=== PATIENT | female | born 1950 | race Caucasian/White ===

== ENCOUNTER → 2016-09-21 | Outpatient (CLI) | payer OTHER ==
[~2016-09-21] MED LIST: B-12; CENTRUM SILVER1 TA1 PO; LORTAB 5/500 501 TAB PO; OMEGA-3; SYNTHROID0.075 MG/T PO; ULTRAM 50MG TAB50 MG PO
== END ==
LOC: MC.RAD 08:57
DX: Z12.31 Encounter for screening mammogram for malignant neoplasm of breast (principal)

== ENCOUNTER → 2017-03-31 | Outpatient (CLI) | payer OTHER | LOC: COL.RAD 09:45 | DX: M25.512 Pain in left shoulder (principal) | CPT/HCPCS: J3301; Q9967 ==

== ENCOUNTER → 2017-09-22 | Outpatient (CLI) | payer MEDICARE, OTHER | LOC: MC.RAD 07:56 | DX: Z12.31 Encounter for screening mammogram for malignant neoplasm of breast (principal) ==

== ENCOUNTER 2017-09-29 17:32 | Emergency (ER) | payer MEDICARE, OTHER ==
[~2017-09-29] VITALS: Ht 152.4 cm; Wt 63.6 kg
[2017-09-29 17:46] VITALS: TEMP 98.3
[2017-09-29 19:30] LABS: BASO % 0.5 % (0.0-2.0); EOS # 0.1 (0.0-0.7); EOS % 0.6 % (0-4.0); GRAN # 6.4 (1.4-6.5); GRAN % 75.4 % (42.2-75.2); HEMATOCRIT 40.6 % (37.0-47.0); HEMOGLOBIN 13.7 g/dl (12.5-16.0); LYMPH # 1.2 (1.2-3.4); LYMPH % 14.3 % (20.0-51.0); MEAN CELL VOLUME 92 fl (80.0-100.0); MEAN CORPUSCULAR HEMOGLOBIN 31 pg (27.0-31.0); MEAN CORPUSCULAR HGB CONC 34 g/dl (33.0-37.0); MEAN PLATELET VOLUME 8.8 fl (7.4-10.4); MONO # 0.8 (0.1-0.6); PLATELET COUNT 299 K/mm3 (130-400); REDCELL DISTRIBUTION WIDTH-CV 12.3 % (11.5-14.5)
[2017-09-29 19:41] LABS: ALBUMIN 4.8 gm/dL (3.5-5.0); BILIRUBIN,TOTAL 0.3 mg/dL (0.0-1.0); CALCIUM 9.9 mg/dL (8.4-10.2); CREATININE, serum 0.74 mg/dL (0.52-1.25); POTASSIUM 4.1 mmol/L (3.4-5.0); TOTAL PROTEIN 7.5 gm/dL (6.4-8.2)
[2017-09-29] MEDS ORDERED: OMEGA-31 SGL PO (19:45)
[2017-09-29] MEDS ORDERED: ESTRACE0.1 MG/GM VG (19:46)
[2017-09-29] MEDS ORDERED: FLAX OIL1000 MG (19:46)
[2017-09-29] MEDS ORDERED: VITAMIN D32000 I1 PO (19:46)
[2017-09-29] MEDS ORDERED: BENTYL 20MG20 MG/TAB PO (20:58)
[2017-09-29] MEDS ORDERED: ZOFRAN ODT4 MG PO (20:58)
[2017-09-29 21:21] VITALS: BP 121/78; PULSE 91
== END 2017-09-29 21:22 | disposition home or self-care (01) ==
LOC: COL.ER 17:32
PROVIDERS: Emergency Medicine
DX: R10.30 Lower abdominal pain, unspecified (principal); M54.9 Dorsalgia, unspecified; G89.29 Other chronic pain; Z90.710 Acquired absence of both cervix and uterus

== ENCOUNTER → 2018-10-05 | Outpatient (CLI) | payer MEDICARE, OTHER ==
[~2018-10-05] MED LIST changes: +BENTYL 20MG20 MG/TAB PO; +ESTRACE0.1 MG/GM VG; +FLAX OIL1000 MG; +OMEGA-31 SGL PO; +VITAMIN D32000 I1 PO; +ZOFRAN ODT4 MG PO
== END ==
LOC: MC.RAD 07:32
DX: Z12.31 Encounter for screening mammogram for malignant neoplasm of breast (principal)

== ENCOUNTER → 2019-09-03 | Outpatient (CLI) | payer MEDICARE, OTHER | LOC: MC.RAD 13:30 | DX: N64.4 Mastodynia (principal) | CPT/HCPCS: G0279 ==

== ENCOUNTER 2019-11-12 13:04 | Outpatient (RCR) | payer SELFPAY | END 2019-12-11 | disposition still patient (30) | LOC: COL.CR | DX: Z02.89 Encounter for other administrative examinations (principal) ==

== ENCOUNTER → 2020-09-04 | Outpatient (CLI) | payer MEDICARE, OTHER | LOC: MC.RAD 09:00 | DX: Z12.31 Encounter for screening mammogram for malignant neoplasm of breast (principal) ==

== ENCOUNTER 2021-02-19 14:34 | Emergency (ER) | payer MEDICARE, OTHER ==
[~2021-02-19] VITALS: Ht 152.4 cm; Wt 68.2 kg
[2021-02-19 14:51] VITALS: TEMP 97.8
[2021-02-19 15:21] LABS: BASO % 0.5 % (0.0-2.0); EOS # 0.1 (0.0-0.7); GRAN # 3.7 (1.4-6.5); GRAN % 60.2 % (42.2-75.2); HEMATOCRIT 40.4 % (37.0-47.0); HEMOGLOBIN 13.4 g/dl (12.5-16.0); LYMPH # 1.6 (1.2-3.4); LYMPH % 26.7 % (20.0-51.0); MEAN CELL VOLUME 93 fl (80.0-100.0); MEAN CORPUSCULAR HEMOGLOBIN 31 pg (27.0-31.0); MEAN CORPUSCULAR HGB CONC 33 g/dl (33.0-37.0); MEAN PLATELET VOLUME 8.9 fl (7.4-10.4); MONO # 0.6 (0.1-0.6); MONO % 10.3 % (1.7-9.3); PLATELET COUNT 308 K/mm3 (130-400); RED BLOOD COUNT 4.34 M/mm3 (4.10-5.30); REDCELL DISTRIBUTION WIDTH-CV 12.4 % (11.5-14.5)
[2021-02-19 15:31] LABS: ALANINE AMINOTRANSFERASE 27 U/L (4-34); ALBUMIN 4.3 gm/dL (3.5-5.0); ALKALINE PHOSPHATASE 102 U/L (50-136); ANION GAP 6 mmol/L (7-16); AST,SGOT 43 U/L (15-37); BILIRUBIN,TOTAL 0.4 mg/dL (0.0-1.0); BLOOD UREA NITROGEN 17 mg/dL (7-17); CALCIUM 10.1 mg/dL (8.4-10.2); CARBON DIOXIDE 26 mmol/L (22-30); CHLORIDE 106 mmol/L (98-107); CREATININE, serum 0.68 (0.52-1.25); GLUCOSE 100 mg/dL (74-106); SODIUM 139 mmol/L (137-145); TOTAL PROTEIN 7.3 gm/dL (6.4-8.2)
[2021-02-19 15:46] LABS: LIPASE 83 U/L (23-300)
[2021-02-19 15:53] LABS: C-REACTIVE PROTEIN < 0.5 mg/dL (0.0-0.9)
[2021-02-19 16:43] LABS: COLLECTION METHOD CLEAN CATCH
[2021-02-19 16:49] LABS: MUCOUS Present /lpf; PH 6 (5-8); SQUAMOUS EPITHELIAL 0-2 /hpf; URINE APPEARANCE Clear; URINE BACTERIA Rare /hpf; URINE BILIRUBIN Negative (NEGATIVE); URINE BLOOD Negative (NEGATIVE); URINE COLOR Straw; URINE GLUCOSE Negative (NEGATIVE); URINE KETONE Negative (NEGATIVE); URINE LEUKOCYTE ESTERASE Negative (NEGATIVE); URINE NITRATE Negative (NEGATIVE); URINE PROTEIN(semi-quant) Negative (NEGATIVE); URINE RBC 0-2 /hpf; URINE UROBILINOGEN Negative (NEGATIVE)
[2021-02-19] MEDS ORDERED: BONINE25 MG PO (18:05)
[2021-02-19 18:27] VITALS: BP 124/76; PULSE 80
== END 2021-02-19 18:30 | disposition home or self-care (01) ==
LOC: COL.ER 14:34
PROVIDERS: Family Medicine
DX: H83.2X9 Labyrinthine dysfunction, unspecified ear (principal); E03.9 Hypothyroidism, unspecified; Z79.890 Hormone replacement therapy
CPT/HCPCS: J7120

== ENCOUNTER → 2021-10-06 | Outpatient (CLI) | payer MEDICARE, OTHER ==
[~2021-10-06] MED LIST changes: +BONINE25 MG PO
== END ==
LOC: MC.RAD 08:05
DX: Z12.31 Encounter for screening mammogram for malignant neoplasm of breast (principal); N63.10 Unspecified lump in the right breast, unspecified quadrant

== ENCOUNTER → 2021-10-14 | Outpatient (CLI) | payer MEDICARE, OTHER | LOC: MC.RAD 13:00 | DX: N60.11 Diffuse cystic mastopathy of right breast (principal) ==

== ENCOUNTER → 2022-11-23 | Outpatient (CLI) | payer MEDICARE, OTHER | LOC: MC.RAD 09:11 | DX: Z12.31 Encounter for screening mammogram for malignant neoplasm of breast (principal) ==

== ENCOUNTER → 2023-11-25 | Outpatient (CLI) | payer MEDICARE | LOC: MC.RAD 09:46 | DX: Z12.31 Encounter for screening mammogram for malignant neoplasm of breast (principal) ==